=== PATIENT | male | born 1985 | race Caucasian/White ===

== ENCOUNTER 2017-10-01 21:05 | Emergency (ER) | payer SELFPAY, OTHER ==
[2017-10-01] MEDS: ceFAZolin SOD 1 GM in D5W MINI-BAG PLUS 50 ML IV (21:36)
[2017-10-01] MEDS: MORPHINE 4 MG/ML 1ML VIAL/SYRINGE (J2270) IV ×2 (21:37→22:53)
[2017-10-01] MEDS: ONDANSETRON 4MG/2ML VIAL (J2405) IV (21:37)
[2017-10-01] MEDS: TETANUS/DIPHTHERIA TOX ADSORB ADULT 0.5ML SYR/VIAL (90714) IM (21:46)
[2017-10-01] MEDS: NS 1,000 ML IV ×2 (22:53→23:09)
[2017-10-01] MEDS: PROPOFOL 200 MG/20 ML VIAL IV ×4 (23:29→23:36)
[2017-10-02] MEDS: MORPHINE 4 MG/ML 1ML VIAL/SYRINGE (J2270) IV (01:10)
[2017-10-02] MEDS: ceFAZolin SOD 1 GM in D5W MINI-BAG PLUS 50 ML IV (01:10)
== END 2017-10-02 01:13 | disposition short-term general hospital (02) ==
LOC: M ED 10-02 01:13
DX: S98.121A Partial traumatic amputation of right great toe, initial encounter (principal); S98.141A Partial traumatic amputation of one right lesser toe, initial encounter; W28.XXXA Contact with powered lawn mower, initial encounter; Y92.096 Garden or yard of other non-institutional residence as the place of occurrence of the external cause; F43.10 Post-traumatic stress disorder, unspecified; F32.9 Major depressive disorder, single episode, unspecified; F17.210 Nicotine dependence, cigarettes, uncomplicated; Z79.899 Other long term (current) drug therapy
CPT/HCPCS: J0690

== ENCOUNTER 2018-03-11 17:15 | Emergency (ER) | payer OTHER ==
[~2018-03-11] VITALS: Ht 188 cm; Wt 118.2 kg
[~2018-03-11 17:15] MED LIST: ADDE10CA3 PO; ADDE20CA3 PO; ATARAX PO; Atarax PO; LUNE3TAB36 PO; LUNESTA PO; MIRT1TAB PO; SEROQUEL PO; SERT50TA PO; TRAZ1TAB14 PO; ZOLO PO; ZOLO100T PO; ZOLOFT PO
[2018-03-11] MEDS ORDERED: BUSP15TA47 PO (17:21)
[2018-03-11] MEDS ORDERED: EFFE150C2 PO (17:21)
[2018-03-11] MEDS ORDERED: HYDR-3363 PO (17:21)
[2018-03-11] MEDS ORDERED: VITA200015 PO (17:21)
[2018-03-11] MEDS ORDERED: NS 1,000 ML IV ONE ×2 (17:45→19:00)
[2018-03-11] MEDS ORDERED: IPRATROPIUM 0.5MG/ALBUTEROL 2.5MG INH SOL UD 3ML (DUONEB)(J7620) NEB ONE (17:45)
[2018-03-11] MEDS ORDERED: ONDANSETRON 4MG/2ML VIAL (J2405) IV ONE (17:45)
[2018-03-11 18:22] LABS: HEMATOCRIT 47.3 % (42.0-52.0); HEMOGLOBIN 17.1 g/dl (13.5-17.5); MEAN CORPUSCULAR HEMOGLOBIN 32.1 pg (27.0-33.0); MEAN CORPUSCULAR HGB CONC 36.2 g/dl (32.0-36.5); MEAN CORPUSCULAR VOLUME 88.9 fl (80.0-96.0); PLATELET COUNT, AUTOMATED 266 10^3/uL (150-450); RED BLOOD COUNT 5.32 10^6/uL (4.30-6.10); WHITE BLOOD COUNT 17.6 10^3/uL (4.0-10.0)
--- NOTE | 2018-03-11 18:29 | REP ---
Chest two views HISTORY: Shortness of breath Comparison: None The lungs are clear. The heart is normal in size. The pulmonary vasculature is normal in appearance. The bony structure is intact. IMPRESSION: No acute disease. Electronically Signed by Paul Cotton MD 03/11/2018 06:21 P
[2018-03-11 18:40] LABS: ALBUMIN 4.4 GM/DL (3.2-5.2); BILIRUBIN,TOTAL 0.6 MG/DL (0.2-1.0); CALCIUM LEVEL 10.6 MG/DL (8.5-10.1); CREATININE FOR GFR 1.65 MG/DL (0.70-1.30); GLOMERULAR FILTRATION RATE 52.4 (>60); POTASSIUM SERUM 3.8 MEQ/L (3.5-5.1); TOTAL PROTEIN 8.1 GM/DL (6.4-8.2)
[2018-03-11 18:48] LABS: INFLUENZA A AMPLIFICATION POSITIVE (NEGATIVE); INFLUENZA B AMPLIFICATION NEGATIVE (NEGATIVE)
[2018-03-11] MEDS ORDERED: OSEL75CA PO (19:36)
[2018-03-11] MEDS ORDERED: ONDA4TAB6 PO (19:36)
[2018-03-11] MEDS ORDERED: OSELTAMIVIR PHOSPHATE 75 MG CAP (TAMIFLU) PO ONE (19:45)
[2018-03-11] MEDS ORDERED: ONDANSETRON 4 MG ORAL DISINTEGRATING TAB (Q0162 PER 1MG) PO ONE (19:45)
[2018-03-11 19:49] VITALS: BP 136/76
== END 2018-03-11 20:00 | disposition home or self-care (01) ==
LOC: M ED 17:15
DX: J09.X2 Influenza due to identified novel influenza A virus with other respiratory manifestations (principal); R11.2 Nausea with vomiting, unspecified; E86.0 Dehydration; R42 Dizziness and giddiness; F43.10 Post-traumatic stress disorder, unspecified; J34.2 Deviated nasal septum; Z79.899 Other long term (current) drug therapy
CPT/HCPCS: 71046; 80053; 83690; 85027; 87631; 94640; 96374; 99284; J2405; Q0162

== ENCOUNTER 2019-03-23 14:23 | Emergency (ER) | payer OTHER ==
[~2019-03-23] VITALS: Ht 190.5 cm; Wt 104.9 kg
[~2019-03-23 14:23] MED LIST changes: +BUSP15TA47 PO; +EFFE150C2 PO; +HYDR-3363 PO; +ONDA4TAB6 PO; +OSEL75CA PO; +SERT-141 PO; -SERT50TA PO; +VITA200015 PO
[2019-03-23] MEDS ORDERED: NS 1,000 ML IV ONE ×2 (15:00→15:45)
[2019-03-23] MEDS ORDERED: ONDANSETRON 4MG/2ML VIAL (J2405) IV ONE ×2 (15:00→15:45)
[2019-03-23] MEDS ORDERED: CAPSAICIN 0.025% CR 60 GM TOP STA (15:34)
[2019-03-23] MEDS ORDERED: ONDANSETRON 4 MG ORAL DISINTEGRATING TAB (Q0162 PER 1MG) As Ordered ONE (15:35)
[2019-03-23] MEDS ORDERED: KETOROLAC 30 MG/ML VIAL (J1885) IV ONE (15:45)
[2019-03-23] MEDS ORDERED: ONDANSETRON 4 MG ORAL DISINTEGRATING TAB (Q0162 PER 1MG) PO ONE ×3 (15:45→22:00)
[2019-03-23] MEDS ORDERED: GI COCKTAIL 50ML BTL(HYOSCYAMINE/MAALOX/LIDOCAINE VISCOUS)(1:3:1) PO ONE (15:45)
[2019-03-23 16:43] LABS: BASO % 0.3 % (0.0-1.0); EOS % 0.1 % (0.0-3.0); HEMATOCRIT 47.4 % (42.0-52.0); HEMOGLOBIN 16.3 g/dl (13.5-17.5); LYMPH # 1.1 10^3/uL (1.5-5.0); LYMPH % 8.1 % (24.0-44.0); MEAN CORPUSCULAR HEMOGLOBIN 30.9 pg (27.0-33.0); MEAN CORPUSCULAR HGB CONC 34.4 g/dl (32.0-36.5); MEAN CORPUSCULAR VOLUME 89.8 fl (80.0-96.0); MONO # 0.5 10^3/uL (0.0-0.8); MONO % 3.7 % (0.0-5.0); NEUTROPHILS # 11.9 10^3/uL (1.5-8.5); NEUTROPHILS % 87.4 % (36.0-66.0); PLATELET COUNT, AUTOMATED 250 10^3/uL (150-450); RED BLOOD COUNT 5.28 10^6/uL (4.30-6.10); WHITE BLOOD COUNT 13.7 10^3/uL (4.0-10.0)
[2019-03-23] MEDS ORDERED: ISOVUE-370 76% 100ML VIAL (Q9967) As Ordered ONE (16:45)
--- NOTE | 2019-03-23 17:34 | REPVR ---
PROCEDURE INFORMATION: Exam: CT Angiography Chest With Contrast Exam date and time: 03/23/2019 4:51 PM Age: 33 years old Clinical indication: Pain and abnormal findings; Abnormal diagnostic tests; Elevated d-dimer; Shortness of breath; Chest pain; Additional info: SOB, elev. D dimer, pleuritic cp TECHNIQUE: Imaging protocol: Computed tomographic angiography of the chest with intravenous contrast. 3D rendering: MIP and/or 3D reconstructed images were created by the technologist. Radiation optimization: All CT scans at this facility use at least one of these dose optimization techniques: automated exposure control; mA and/or kV adjustment per patient size (includes targeted exams where dose is matched to clinical indication); or iterative reconstruction. Contrast material: ISOVUE 370; Contrast volume: 100 ml; Contrast route: IV; COMPARISON: CR Chest, 2 view PA, Lat 03/11/2018 6:06 PM FINDINGS: Pulmonary arteries: There is opacification of the pulmonary arteries with no evidence of pulmonary embolus. Aorta: There is opacification of the aorta which appears intact. Lungs: Clear appearing lungs Pleural space: There is no evidence of pneumothorax or pleural effusion. Heart: The heart is top-normal in size and there is no pericardial effusion. Lymph nodes: Unremarkable. No enlarged lymph nodes. Bones/joints: There is no evidence of bony abnormality. Soft tissues: Unremarkable. IMPRESSION: No evidence of pulmonary embolus. Electronically signed by: Saji West On 03/23/2019 17:33:55 PM
--- NOTE | 2019-03-23 18:01 | REPVR ---
PROCEDURE INFORMATION: Exam: CT Abdomen And Pelvis With Contrast Exam date and time: 03/23/2019 4:51 PM Age: 33 years old Clinical indication: Abdominal pain; Generalized; Additional info: SOB, elev. D dimer, pleuritic cp TECHNIQUE: Imaging protocol: Computed tomography of the abdomen and pelvis with intravenous contrast. Radiation optimization: All CT scans at this facility use at least one of these dose optimization techniques: automated exposure control; mA and/or kV adjustment per patient size (includes targeted exams where dose is matched to clinical indication); or iterative reconstruction. Contrast material: ISOVUE 370; Contrast volume: 100 ml; Contrast route: IV; COMPARISON: No relevant prior studies available. FINDINGS: Liver: There is uniform enhancement of the liver. There may be mild fatty infiltration. Gallbladder and bile ducts: Normal common bile duct. Normal appearing gallbladder. Pancreas: Normal. No ductal dilation. Spleen: Normal spleen. Adrenals: Normal adrenal glands. Kidneys and ureters: There is enhancement of both kidneys and there is no evidence of hydronephrosis. Stomach and bowel: Unremarkable. No obstruction. No mucosal thickening. Appendix: Normal appendix. Intraperitoneal space: There is no evidence of pneumoperitoneum or free fluid. Vasculature: There is opacification of the aorta which appears normal in size. Lymph nodes: Unremarkable. No enlarged lymph nodes. Bladder: Normal urinary bladder. Reproductive: Normal appearing prostate. Bones/joints: Unremarkable. No acute fracture. Soft tissues: Unremarkable. IMPRESSION: 1. Mild fatty infiltration of the liver. 2. No evidence of bowel obstruction. Electronically signed by: Saji West On 03/23/2019 18:01:21 PM
[2019-03-23 18:15] LABS: ALBUMIN 4.1 GM/DL (3.2-5.2); ALT/SGPT 27 U/L (12-78); BILIRUBIN,DIRECT 0.2 MG/DL (0.0-0.2); BILIRUBIN,TOTAL 0.6 MG/DL (0.2-1.0); BLOOD UREA NITROGEN 15 MG/DL (7-18); CALCIUM LEVEL 9.7 MG/DL (8.5-10.1); CARBON DIOXIDE LEVEL 21 MEQ/L (21-32); CHLORIDE LEVEL 110 MEQ/L (98-107); CREATININE FOR GFR 1.36 MG/DL (0.70-1.30); GLOMERULAR FILTRATION RATE > 60.0 (>60); GLUCOSE, FASTING 104 MG/DL (70-100); LIPASE 134 U/L (73-393); POTASSIUM SERUM 3.7 MEQ/L (3.5-5.1); SODIUM LEVEL 141 MEQ/L (136-145); TOTAL PROTEIN 7.3 GM/DL (6.4-8.2)
[2019-03-23 19:50] LABS: INFLUENZA A AMPLIFICATION NEGATIVE (NEGATIVE); INFLUENZA B AMPLIFICATION NEGATIVE (NEGATIVE)
[2019-03-23] MEDS ORDERED: ONDA4TAB6 PO (21:46)
[2019-03-23] MEDS ORDERED: ONDANSETRON 4 MG TAB (S0181) PO ONE (22:00)
[2019-03-23 22:13] VITALS: BP 122/82
== END 2019-03-23 22:27 | disposition home or self-care (01) ==
LOC: M ED 14:23
DX: K52.9 Noninfective gastroenteritis and colitis, unspecified (principal); E86.0 Dehydration; F17.200 Nicotine dependence, unspecified, uncomplicated; Z79.899 Other long term (current) drug therapy
CPT/HCPCS: 71275; 74177; 80047; 80048; 80076; 81001; 83605; 83690; 85025; 85379; 87086; 87502; 96360; 96361; 96374; 99284; J1885; Q0162; Q9967

== ENCOUNTER → 2021-10-10 | Outpatient (CLI) | payer OTHER | LOC: M WUC 14:09 | DX: R06.2 Wheezing (principal) ==

== ENCOUNTER → 2023-07-03 | Outpatient (CLI) | payer OTHER ==
[~2023-07-03] MED LIST changes: -EFFE150C2 PO; +EFFE150C3 PO; -LUNE3TAB36 PO; +LUNE3TAB50 PO
== END ==
LOC: M WUC 14:17
PROVIDERS: ATTEND Physician Assistant
DX: J45.20 Mild intermittent asthma, uncomplicated (principal)

== ENCOUNTER → 2023-08-15 | Outpatient (CLI) | payer OTHER ==
[~2023-08-15] MED LIST changes: +ONDA-282 PO; -ONDA4TAB6 PO
== END ==
LOC: M RAD 10:57
PROVIDERS: ATTEND Nurse Practitioner Family
DX: R55 Syncope and collapse (principal)